=== PATIENT | female | born 1955 | race Caucasian/White ===

== ENCOUNTER 2023-09-01 14:18 | Outpatient (AMB) | payer OTHER, SELFPAY ==
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
== END 2023-09-01 15:35 | disposition home or self-care (01) ==
PROVIDERS: PCP Family Medicine; Visit Provider Clinical Nurse Specialist Psychiatric/Mental Health
DX: F33.1 Major depressive disorder, recurrent, moderate (principal); F41.1 Generalized anxiety disorder
CPT/HCPCS: 99214

== ENCOUNTER → 2023-09-01 14:18 | Outpatient (BNVA) | payer MEDICARE, SELFPAY | PROVIDERS: PCP Family Medicine; Visit Provider Clinical Nurse Specialist Psychiatric/Mental Health ==

== ENCOUNTER 2023-10-11 12:54 | Outpatient (AMB) | payer OTHER, SELFPAY ==
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
== END 2023-10-11 13:50 | disposition home or self-care (01) ==
LOC: HO.HOP 12:54
PROVIDERS: PCP Family Medicine; Visit Provider Clinical Nurse Specialist Psychiatric/Mental Health
DX: F41.1 Generalized anxiety disorder (principal); F33.1 Major depressive disorder, recurrent, moderate
CPT/HCPCS: 99214

== ENCOUNTER → 2023-10-11 12:54 | Outpatient (BNVA) | payer OTHER, SELFPAY | PROVIDERS: PCP Family Medicine; Visit Provider Clinical Nurse Specialist Psychiatric/Mental Health ==

== ENCOUNTER 2024-01-04 12:46 | Outpatient (AMB) | payer OTHER, SELFPAY ==
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
== END 2024-01-04 15:53 | disposition home or self-care (01) ==
LOC: HO.HOP 12:46
PROVIDERS: PCP Family Medicine; Visit Provider Clinical Nurse Specialist Psychiatric/Mental Health
DX: F41.1 Generalized anxiety disorder (principal); F33.1 Major depressive disorder, recurrent, moderate
CPT/HCPCS: 99214

== ENCOUNTER → 2024-01-04 12:46 | Outpatient (BNVA) | payer OTHER, SELFPAY | PROVIDERS: PCP Family Medicine; Visit Provider Clinical Nurse Specialist Psychiatric/Mental Health ==

== ENCOUNTER 2024-02-24 10:55 | Outpatient (AMB) | payer OTHER, SELFPAY ==
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
== END 2024-02-24 11:47 | disposition home or self-care (01) ==
LOC: HO.HOP 10:55
PROVIDERS: PCP Family Medicine; Visit Provider Clinical Nurse Specialist Psychiatric/Mental Health
DX: F41.1 Generalized anxiety disorder (principal); F33.1 Major depressive disorder, recurrent, moderate
CPT/HCPCS: 99214

== ENCOUNTER → 2024-02-24 10:55 | Outpatient (BNVA) | payer OTHER, SELFPAY | PROVIDERS: PCP Family Medicine; Visit Provider Clinical Nurse Specialist Psychiatric/Mental Health ==